=== PATIENT | male | born 1995 | race Hispanic/Latino ===

== ENCOUNTER 2022-12-29 15:24 | Emergency (ER) | payer OTHER, SELFPAY ==
[2022-12-29] MEDS ORDERED: diphenhydrAMINE 25 MG CAP ONE (17:04)
[2022-12-29] MEDS ORDERED: predniSONE 20 MG TAB ONE (17:05)
== END 2022-12-29 17:01 | disposition home or self-care (01) ==
LOC: CSHERS 15:24
DX: L23.7 Allergic contact dermatitis due to plants, except food (principal)
CPT/HCPCS: 99282; J7512